=== PATIENT | male | born 1990 | race Caucasian/White ===

== ENCOUNTER → 2017-02-17 | Outpatient (CLI) | payer BC ==
[~2017-02-17] MED LIST: No meds per pt.
[2017-02-17 09:37] LABS: HEMATOCRIT 50.7 % (39.2-51.8); HEMOGLOBIN 17.4 g/dL (13.7-18.0); WHITE BLOOD COUNT 5.5 x10^3/uL (3.4-10)
== END | disposition home or self-care (01) ==
LOC: STAR 08:25
PROVIDERS: ATTEND Otolaryngology Facial Plastic Surgery
DX: Z01.818 Encounter for other preprocedural examination (principal); J34.2 Deviated nasal septum; J34.3 Hypertrophy of nasal turbinates
CPT/HCPCS: 36415; 85025

== ENCOUNTER 2017-03-03 08:14 | Day surgery (SDC) | payer BC ==
[~2017-03-03] VITALS: Ht 175.3 cm; Wt 80.0 kg
[2017-03-03] MEDS ORDERED: LACTATED RINGERS 1,000 ML IV SCH (09:05)
[2017-03-03 09:26] VITALS: BP 102/70
[2017-03-03] MEDS ORDERED: MIDAZOLAM 1 MG/ML, 2ML ONE (09:47)
[2017-03-03] MEDS ORDERED: FENTANYL PF 100 MCG/2ML ONE ×2 (09:47)
[2017-03-03] MEDS ORDERED: OXYMETAZOLINE NASAL SPRAY 0.05%, 15ML ONE (09:50)
[2017-03-03] MEDS ORDERED: EPINEPHRINE 1 MG/ML, 1ML ONE (09:50)
[2017-03-03] MEDS ORDERED: MUPIROCIN OINT 2%, 22GM ONE (09:50)
[2017-03-03] MEDS ORDERED: COCAINE TOPICAL SOLN 4%, 4ML ONE (09:50)
[2017-03-03] MEDS ORDERED: LIDOCAINE/PF 1%, 30ML ONE (09:51)
[2017-03-03] MEDS ORDERED: CEFAZOLIN 1,000 MG ONE (10:10)
[2017-03-03] MEDS ORDERED: DEXAMETHASONE 4 MG/ML, 1ML ONE (10:10)
[2017-03-03] MEDS ORDERED: ROCURONIUM 10 MG/ML ONE (10:10)
[2017-03-03] MEDS ORDERED: PROPOFOL 10 MG/ML, 20ML ONE (10:10)
[2017-03-03] MEDS ORDERED: ONDANSETRON 2MG/ML, 2ML ONE (10:10)
[2017-03-03] MEDS ORDERED: SUCCINYLCHOLINE 20 MG/ML, 10ML ONE (10:10)
[2017-03-03] MEDS ORDERED: ACETAMINOPHEN 325 MG TABLET PO PRN (10:30)
[2017-03-03] MEDS ORDERED: hydrALAzine 20 MG/ML, 1ML IV PRN (10:30)
[2017-03-03] MEDS ORDERED: OXYcodone 5 MG/5 ML ORAL.SOL UDC PO PRN (10:30)
[2017-03-03] MEDS ORDERED: HYDROmorphone 1 MG/ML, 1ML IV PRN (10:30)
[2017-03-03] MEDS ORDERED: FENTANYL PF 100 MCG/2ML IV PRN (10:30)
[2017-03-03] MEDS ORDERED: LABETALOL 5MG/ML, 20ML IV PRN (10:30)
[2017-03-03] MEDS ORDERED: ALBUTEROL SULFATE 2.5 MG/3 ML NPPB PRN (10:30)
[2017-03-03] MEDS ORDERED: ONDANSETRON 2MG/ML, 2ML IVPush PRN (10:30)
[2017-03-03] MEDS ORDERED: MIDAZOLAM 1 MG/ML, 2ML IV PRN (10:30)
[2017-03-03] MEDS ORDERED: PROMETHAZINE 25 MG/ML, 1ML IV PRN (10:30)
[2017-03-03] MEDS ORDERED: MEPERIDINE/PF 25MG/0.5ML IVPush PRN (10:30)
[2017-03-03] MEDS ORDERED: ACETAMINOPHEN 650 MG/20.3 ML UDC ONE (11:42)
[2017-03-03] MEDS ORDERED: OXYcodone 5 MG/5 ML ORAL.SOL UDC ONE (11:43)
== END 2017-03-03 13:15 ==
LOC: OUT 08:14
PROVIDERS: ATTEND Otolaryngology Facial Plastic Surgery
DX: J34.2 Deviated nasal septum (principal); E78.5 Hyperlipidemia, unspecified
CPT/HCPCS: 30520; J0171; J2250; J3010; J3490; J7120; J0690; J1100; J2405; J2704; J0330